=== PATIENT | male | born 1965 | race Caucasian/White ===

== ENCOUNTER 2020-11-19 09:40 | Outpatient (CLI) | payer BC | END 2020-11-19 09:41 | disposition home or self-care (01) | LOC: CSHCT 09:40 | PROVIDERS: ATTEND Physician Assistant Medical | DX: R10.31 Right lower quadrant pain (principal); R19.7 Diarrhea, unspecified; K63.9 Disease of intestine, unspecified | CPT/HCPCS: 74177 ==